=== PATIENT | female | born 1980 | race Caucasian/White ===

== ENCOUNTER 2022-09-03 06:55 | Inpatient (IN) | payer BC ==
[2022-08-30 13:37] LABS: BASOPHILS % 0.1 % (0.0-1.0); EOSINOPHILS # (AUTO) 0.1 (0.0-0.4); EOSINOPHILS % 1.7 % (0.0-6.0); HEMATOCRIT 42.8 % (34.2-44.1); HEMOGLOBIN 13.9 g/dL (12.0-16.0); LYMPHOCYTES # (AUTO) 2.1 (1.0-3.2); LYMPHOCYTES % 27.5 % (18.0-39.1); MEAN CORPUSCULAR HEMOGLOBIN 29.1 pg (28-32); MEAN CORPUSCULAR HGB CONC 32.5 g/dL (31-35); MEAN CORPUSCULAR VOLUME 89.5 fL (81-99); MONOCYTES # (AUTO) 0.5 (0.2-0.8); MONOCYTES % 6.6 % (4.4-11.3); NEUTROPHILS # (AUTO) 4.8 (2.1-6.9); NEUTROPHILS % 63.6 % (38.7-80.0); PLATELET COUNT 355 x10e3/uL (140-360); RED BLOOD COUNT 4.78 x10e6/uL (3.6-5.1); RED CELL DISTRIBUTION WIDTH 12.3 % (11.7-14.4)
[2022-08-30 14:11] LABS: ANION GAP 18.9 mmol/L (8-16); CREATININE, SERUM 0.67 mg/dL (0.57-1.11); POTASSIUM 3.9 mmol/L (3.5-5.1)
[~2022-09-03] VITALS: Ht 160 cm; Wt 117.3 kg
[~2022-09-03 06:55] MED LIST: AMLODIPINE BESY10 MG PO; BENICAR20 MG PO; CRESTOR10 MG PO; HYDROCHLOROTHIA25 MG PO; ISIBLOOM 28 DA1 EACH; METFORMIN HCL500 M1 PO; METOPROLOL SUCC50 MG PO; MULTI-VITAMIN1 EACH PO; Z.0.BACTRIM DS TAB1 PO; Z.0.CLEOCIN HCL300 M PO
[2022-09-03] MEDS ORDERED: SCOPOLAMINE 1 MG PATCH TOP SCH ×2 (09:45→14:30)
[2022-09-03] MEDS ORDERED: HYDROCODONE/APAP 7.5MG-325MG 1 EA TAB PO PRN (09:45)
[2022-09-03] MEDS ORDERED: BUPIVACAINE 0.25% 30ML SDV ONE (10:23)
[2022-09-03] MEDS ORDERED: ROCURONIUM BROMIDE 10 MG/ML 5ML VIAL IV ONE (12:21)
[2022-09-03] MEDS ORDERED: PROPOFOL IV EMULSION 10 MG/ML 20 ML VIAL ONE (12:21)
[2022-09-03] MEDS ORDERED: NEOSTIGMINE 1 MG/ML 10ML VIAL ONE (12:21)
[2022-09-03] MEDS ORDERED: PHENYLEPHRINE HCL 1% 10 MG/ML VIAL ONE (12:21)
[2022-09-03] MEDS ORDERED: ONDANSETRON HCL INJ 2MG/ML 2ML 2 MG/ML VIAL ONE (12:21)
[2022-09-03] MEDS ORDERED: EPHEDRINE SULFATE INJ 50 MG/ML VIAL ONE (12:21)
[2022-09-03] MEDS ORDERED: GLYCOPYRROLATE INJ 0.2 MG/ML VIAL ONE (12:21)
[2022-09-03] MEDS ORDERED: POVIDONE IODINE 0.05% 0.05 % ML PO ONE (12:21)
[2022-09-03] MEDS ORDERED: FENTANYL CITRATE/PF 100MCG/2 ML INJ ONE ×2 (12:28→12:55)
[2022-09-03] MEDS ORDERED: MIDAZOLAM HCL 2 MG/2 ML VIAL ONE (12:55)
[2022-09-03 14:00] VITALS: BP 111/57
[2022-09-03] MEDS: LACTATED RINGER'S 1,000 ML IV SCH ×2 (14:25→17:45)
[2022-09-03 16:06] VITALS: BP 123/60
[2022-09-03 16:36] VITALS: BP 123/60
[2022-09-03 20:00] VITALS: BP 138/78
[2022-09-03] MEDS: ENOXAPARIN SOD INJ 40 MG/0.4 ML SYR SC SCH (20:35)
[2022-09-03] MEDS: ONDANSETRON HCL INJ 2MG/ML 2ML 2 MG/ML VIAL IV PRN (20:47)
[2022-09-03] MEDS: Morphine 2mg Syringe 2 MG/ML SYR IV PRN (20:47)
[2022-09-03] MEDS ORDERED: SIMVASTATIN 20 MG TAB PO SCH (21:00)
[2022-09-04] VITALS: BP 142/75
[2022-09-04] MEDS: LACTATED RINGER'S 1,000 ML IV SCH ×2 (01:45→09:45)
[2022-09-04 04:00] VITALS: BP 129/73
[2022-09-04 04:54] LABS: BASOPHILS % 0.2 % (0.0-1.0); HEMATOCRIT 36.1 % (34.2-44.1); HEMOGLOBIN 12.4 g/dL (12.0-16.0); LYMPHOCYTES # (AUTO) 1.1 (1.0-3.2); LYMPHOCYTES % 10.1 % (18.0-39.1); MEAN CORPUSCULAR HEMOGLOBIN 29.2 pg (28-32); MEAN CORPUSCULAR HGB CONC 34.3 g/dL (31-35); MEAN CORPUSCULAR VOLUME 85.1 fL (81-99); MONOCYTES # (AUTO) 0.5 (0.2-0.8); MONOCYTES % 4.4 % (4.4-11.3); NEUTROPHILS # (AUTO) 9.4 (2.1-6.9); NEUTROPHILS % 84.8 % (38.7-80.0); PLATELET COUNT 296 x10e3/uL (140-360); RED BLOOD COUNT 4.24 x10e6/uL (3.6-5.1); RED CELL DISTRIBUTION WIDTH 12.7 % (11.7-14.4)
[2022-09-04 05:19] LABS: ALBUMIN 3.2 g/dL (3.5-5.0); ALBUMIN/GLOBULIN RATIO 0.9 (0.8-2.0); ANION GAP 17.3 mmol/L (8-16); CALCIUM 8.8 mg/dL (8.4-10.2); CREATININE, SERUM 0.6 mg/dL (0.57-1.11); PHOSPHORUS 2.9 MG/DL (2.3-4.7); POTASSIUM 3.3 mmol/L (3.5-5.1)
[2022-09-04 08:03] VITALS: BP 131/72
[2022-09-04 08:28] VITALS: BP 131/72
[2022-09-04] MEDS ORDERED: POTASSIUM CHLORIDE 10MEQ EA PO ONE (08:45)
[2022-09-04] MEDS: ENOXAPARIN SOD INJ 40 MG/0.4 ML SYR SC SCH (08:45)
[2022-09-04] MEDS ORDERED: METOPROLOL SUCCINATE 50 MG TAB XL PO SCH (09:00)
[2022-09-04] MEDS ORDERED: MULTIVITAMINS/MINERALS TAB PO SCH (09:00)
[2022-09-04] MEDS ORDERED: AMLODIPINE BESYLATE 10 MG TAB PO SCH (09:00)
[2022-09-04] MEDS: ONDANSETRON HCL INJ 2MG/ML 2ML 2 MG/ML VIAL IV PRN (09:17)
[2022-09-04] MEDS: Morphine 2mg Syringe 2 MG/ML SYR IV PRN (09:18)
== END 2022-09-04 11:45 | disposition home or self-care (01) | DRG 620 ==
LOC: OR 06:55 → PACU V 09:40 → MED/SURG2 13:35
PROVIDERS: ADMIT Internal Medicine; ATTEND Internal Medicine
PROC: 0DB64ZZ Excision of Stomach, Percutaneous Endoscopic Approach (ICD-10-PCS; 2022-09-03)
PROC: 0D164ZA Bypass Stomach to Jejunum, Percutaneous Endoscopic Approach (ICD-10-PCS; principal; 2022-09-03 09:43)
DX: E66.01 Morbid (severe) obesity due to excess calories (principal); C49.A2 Gastrointestinal stromal tumor of stomach; Z68.42 Body mass index [BMI] 45.0-49.9, adult; E11.9 Type 2 diabetes mellitus without complications; I11.9 Hypertensive heart disease without heart failure; E78.5 Hyperlipidemia, unspecified; Z79.84 Long term (current) use of oral hypoglycemic drugs; Z91.018 Allergy to other foods
CPT/HCPCS: 36415; 80048; 80053; 81025; 82948; 83735; 84100; 85025; 88304; 88307; 88342; 93005; 94799; 96361; C1713; J0690; J1650; J2250; J2270; J2370; J2405; J2710; J3010; J7121